=== PATIENT | male | born 1945 | race Caucasian/White ===

== ENCOUNTER → 2021-01-21 | Outpatient (CLI) | payer MEDICARE, OTHER ==
[~2021-01-21] MED LIST: ALBUTEROL1.25 MG/3 INH; CALCIUM500 MG PO; CARDIZEM CD180 MG PO; CARTIA XT120 MG PO; CIPRO500 MG PO; ECOTRIN81 MG PO; ELIQUIS2.5 MG PO; JARDIANCE25 MG PO; LOTENSIN40 MG PO; MICROZIDE12.5 MG PO; NEURONTIN400 MG PO; NORCO 10-325 T1 EACH PO; NOVOLIN 70100 UNIT/1 SQ; OMEPRAZOLE40 MG PO; PRAVACHOL40 MG PO; ROBITUSSIN AC480 ML PO; SINEMET 25/100 T1 EA PO; SINGULAIR10 MG PO; SPIRIVA RESPIMAT4 GM INH; SYMBICORT 160-1 INHA INH; TRAZODONE HCL50 MG PO; TYLENOL 500 MG500 MG PO
== END ==
LOC: HEART 5 11:05
DX: J44.9 Chronic obstructive pulmonary disease, unspecified (principal)
CPT/HCPCS: 94060; 94729

== ENCOUNTER → 2021-02-03 | Outpatient (CLI) | payer MEDICARE ==
[2021-02-04 09:14] LABS: SARS COV-2 IGG AB Positive (Negative)
[2021-02-04 14:14] LABS: SARS COV-2 IGM AB Negative (Negative)
== END ==
LOC: RT 12:59
PROVIDERS: Internal Medicine Pulmonary Disease
DX: U07.1 COVID-19 (principal); J44.9 Chronic obstructive pulmonary disease, unspecified
CPT/HCPCS: 36600; 82803; 86769

== ENCOUNTER → 2021-08-13 | Outpatient (CLI) | payer MEDICARE | LOC: KOH-I 11:57 | DX: R50.9 Fever, unspecified (principal) | CPT/HCPCS: 71046 ==

== ENCOUNTER 2021-11-15 14:31 | Observation (INO) | payer MEDICARE ==
[~2021-11-15] VITALS: Ht 180.3 cm; Wt 71.2 kg
[~2021-11-15 14:31] MED LIST changes: -ALBUTEROL1.25 MG/3 INH; -ELIQUIS2.5 MG PO; -PRAVACHOL40 MG PO; -SINEMET 25/100 T1 EA PO; -SINGULAIR10 MG PO; -TRAZODONE HCL50 MG PO
[2021-11-15 15:24] LABS: RED BLOOD COUNT 4.06 M/UL (4.20-5.50); WHITE BLOOD COUNT 12.7 K/UL (4.5-11.0)
[2021-11-15 15:45] LABS: BUN/CREATININE RATIO 22 (0-10)
[2021-11-16 04:33] LABS: HEMOGLOBIN 13.1 gm/dl (14.0-17.5); RED BLOOD COUNT 4.12 M/UL (4.20-5.50); WHITE BLOOD COUNT 10.2 K/UL (4.5-11.0)
[2021-11-16 05:08] LABS: BUN/CREATININE RATIO 32 (0-10)
[2021-11-16] MEDS ORDERED: MEDROL4 MG PO (12:13)
[2021-11-16] MEDS ORDERED: DALIRESP 500500 MCG PO (12:57)
[2021-11-16] MEDS ORDERED: PIOGLITAZONE HC30 MG PO (12:59)
[2021-11-16] MEDS ORDERED: PROAIR HFA8.5 GM INH (13:00)
[2021-11-16] MEDS ORDERED: VALIUM 5 MG TAB5 MG PO (13:02)
[2021-11-16] MEDS ORDERED: FINASTERIDE5 MG PO (13:05)
[2021-11-16] MEDS ORDERED: LORATADINE10 MG PO (13:07)
[2021-11-16] MEDS ORDERED: FEROSUL325 MG PO (13:08)
[2021-11-16] MEDS ORDERED: PREDNISONE10 MG PO (13:09)
[2021-11-16] MEDS ORDERED: ELIQUIS5 MG PO (14:37)
[2021-11-16] MEDS ORDERED: SINEMET 25-1001 EACH PO (14:40)
[2021-11-16] MEDS ORDERED: PRAVASTATIN SOD40 MG PO (14:46)
[2021-11-16] MEDS ORDERED: ALBUTEROL2.5 MG/3 M INH (15:28)
[2021-11-16] MEDS ORDERED: TRAZODONE HCL50 MG PO (15:36)
[2021-11-16] MEDS ORDERED: SINGULAIR10 MG PO (15:37)
== END 2021-11-16 15:30 | disposition home or self-care (01) ==
LOC: ER1 14:31 → CDU 16:57 → 3 EAST 16:57
PROVIDERS: Emergency Medicine; Physician Assistant; ADMIT Internal Medicine
DX: J44.1 Chronic obstructive pulmonary disease with (acute) exacerbation (principal); J20.9 Acute bronchitis, unspecified; J44.0 Chronic obstructive pulmonary disease with (acute) lower respiratory infection; E87.3 Alkalosis; E11.65 Type 2 diabetes mellitus with hyperglycemia; D72.829 Elevated white blood cell count, unspecified; D53.9 Nutritional anemia, unspecified; I16.0 Hypertensive urgency; I48.20 Chronic atrial fibrillation, unspecified; J96.11 Chronic respiratory failure with hypoxia; I10 Essential (primary) hypertension; G47.30 Sleep apnea, unspecified; K21.9 Gastro-esophageal reflux disease without esophagitis; F17.200 Nicotine dependence, unspecified, uncomplicated; E78.5 Hyperlipidemia, unspecified; G20 Parkinson's disease; G89.29 Other chronic pain; M54.9 Dorsalgia, unspecified; Z86.16 Personal history of COVID-19; Z99.89 Dependence on other enabling machines and devices; Z79.01 Long term (current) use of anticoagulants; Z79.82 Long term (current) use of aspirin; Z79.899 Other long term (current) drug therapy; Z86.69 Personal history of other diseases of the nervous system and sense organs; Z88.8 Allergy status to other drugs, medicaments and biological substances; Z82.49 Family history of ischemic heart disease and other diseases of the circulatory system
CPT/HCPCS: 0240U; 36600; 71045; 80048; 80053; 82550; 82553; 82803; 82962; 83605; 83874; 83880; 84484; 85025; 87040; 93005; 94640; 94664; 94760; G0378; J0696; J2930; J7050

== ENCOUNTER → 2021-12-03 | Outpatient (CLI) | payer MEDICARE ==
[~2021-12-03] MED LIST changes: +ALBUTEROL2.5 MG/3 M INH; +DALIRESP 500500 MCG PO; +ELIQUIS5 MG PO; +FEROSUL325 MG PO; +FINASTERIDE5 MG PO; +LORATADINE10 MG PO; +MEDROL4 MG PO; +PIOGLITAZONE HC30 MG PO; +PRAVASTATIN SOD40 MG PO; +PREDNISONE10 MG PO; +PROAIR HFA8.5 GM INH; +SINEMET 25-1001 EACH PO; +SINGULAIR10 MG PO; +TRAZODONE HCL50 MG PO; +VALIUM 5 MG TAB5 MG PO
== END ==
LOC: HEART 5 09:00
DX: I20.9 Angina pectoris, unspecified (principal); I08.1 Rheumatic disorders of both mitral and tricuspid valves; R94.39 Abnormal result of other cardiovascular function study
CPT/HCPCS: 78452; 93306; A9502; J2785

== ENCOUNTER → 2022-02-15 | Outpatient (CLI) | payer MEDICARE | LOC: KOH-I 16:29 | DX: R91.8 Other nonspecific abnormal finding of lung field (principal) | CPT/HCPCS: 71250 ==

== ENCOUNTER → 2022-03-05 | Outpatient (CLI) | payer MEDICARE | LOC: RAD 09:30 | DX: I69.991 Dysphagia following unspecified cerebrovascular disease (principal); R91.1 Solitary pulmonary nodule | CPT/HCPCS: 74230; 92611-GN ==